=== PATIENT | male | born 1995 | race Caucasian/White ===

== ENCOUNTER → 2016-10-26 | Outpatient (CLI) | payer OTHER ==
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
== END | disposition home or self-care (01) ==
LOC: SLEEP 14:09
PROVIDERS: ATTEND Internal Medicine
DX: G47.419 Narcolepsy without cataplexy (principal); F90.9 Attention-deficit hyperactivity disorder, unspecified type; F41.9 Anxiety disorder, unspecified; F32.9 Major depressive disorder, single episode, unspecified; M41.9 Scoliosis, unspecified

== ENCOUNTER 2017-07-25 17:42 | Emergency (ER) | payer OTHER ==
[2017-07-25] MEDS ORDERED: ASPIRIN 81 MG PO STA (18:35)
[2017-07-25 19:03] LABS: Basophils % (A) 0 %; Eosinophils # (A) 0.1 k/uL (0-0.7); Eosinophils % (A) 1 %; HCT 44.4 % (39.0-53.0); HGB 14.1 gm/dL (13.0-17.5); Lymphocytes # (A) 1.6 k/uL (1.0-4.8); Lymphocytes % (A) 19 %; MCH 26.6 pg (25.0-35.0); MCHC 31.6 g/dL (31.0-37.0); MCV 83.9 fL (80.0-100.0); Mean Platelet Volume 7.7; Monocytes # (A) 0.5 k/uL (0-1.0); Monocytes % (A) 5 %; Neutrophils # (A) 6.3 k/uL (1.3-7.7); Neutrophils % (A) 74 %; Platelet Count 220 k/uL (150-450); RBC 5.29 m/uL (4.30-5.90); RDW 13.1 % (11.5-15.5); WBC 8.6 k/uL (3.8-10.6)
--- NOTE | 2017-07-25 19:16 | XR ---
EXAMINATION TYPE: XR chest 2V DATE OF EXAM: 07/25/2017 COMPARISON: July 30, 2014 HISTORY: Chest pain TECHNIQUE: Frontal and lateral views of the chest are obtained. FINDINGS: Heart and mediastinum are normal. Lungs are clear. Diaphragm is normal. Bony thorax appear s normal. IMPRESSION: Normal chest. No change.
[2017-07-25 19:20] LABS: ALT 20 U/L (21-72); AST 22 U/L (17-59); Albumin 4.3 g/dL (3.5-5.0); Alkaline Phosphatase 65 U/L (38-126); Anion Gap 13 mmol/L; Blood Urea Nitrogen 17 mg/dL (9-20); Calcium 9.9 mg/dL (8.4-10.2); Carbon Dioxide 29 mmol/L (22-30); Chloride 101 mmol/L (98-107); Glucose 71 mg/dL (74-99); Lipase 52 U/L (23-300); Potassium 4.1 mmol/L (3.5-5.1); Sodium 143 mmol/L (137-145); Total Bilirubin 0.5 mg/dL (0.2-1.3)
--- NOTE | 2017-07-25 19:58 | ED ---
Chest Pain HPI - General Chief Complaint: Chest Pain Stated Complaint: Tightness chest/dizzy Time Seen by Provider: 07/25/17 18:29 Source: patient Mode of arrival: wheelchair Limitations: no limitations - History of Present Illness Initial Comments: Patient complains of chest pain. Pain is sharp. Pain is in the left side of the chest. Nothing makes it better or worse. He took no medications. He has no belly or back pain. He has no nausea or vomiting. He has no exertional dyspnea, chest pain, chest pressure, weakness or trouble walking. He has no lightheadedness or dizziness. He denies syncope or presyncope. - Related Data Home Medications Medication Instructions Recorded Confirmed No Known Home Medications [No 07/25/17 07/25/17 Known Home Medications] Allergies Allergy/AdvReac Type Severity Reaction Status Date / Time Penicillins Allergy Anaphylaxis Verified 07/25/17 18:41 Review of Systems ROS Statement: Those systems with pertinent positive or pertinent negative responses have been documented in the HPI. ROS Other: All systems not noted in ROS Statement are negative. EKG Findings - EKG Comments: EKG Findings:: Twelve-lead EKG shows ventricular rate 50 bpm, normal AR interval and QRS complexes, no ST elevation or depression, interpreted by me as normal sinus rhythm. Past Medical History Past Medical History: No Reported History, Syncope Additional Past Medical History / Comment(s): scoliosis, chronic low back pain, ADHD, anxiety, depression. History of Any Multi-Drug Resistant Organisms: None Reported Past Surgical History: No Surgical Hx Reported Past Psychological History: ADD/ADHD, Anxiety, Panic Disorder Smoking Status: Current every day smoker Past Alcohol Use History: Occasional Past Drug Use History: Marijuana, Opiates, Prescription Drug Abuse - Past Family History Mother Family Medical History: No Reported History (Mother is 38-year-old has no major medical problems.) Father Family Medical History: No Reported History (Father is 42-year-old is in shelter because of a home invasion no major medical problems.) Sister(s) Family Medical History: No Reported History (Patient has one sister 6 half- sisters.) Brother(s) Family Medical History: No Reported History (Patient has 2 brothers and 5 half brothers.) General Exam Limitations: no limitations General appearance: alert, in no apparent distress Head exam: Present: atraumatic, normocephalic, normal inspection Eye exam: Present: normal appearance, PERRL, EOMI. Absent: scleral icterus, conjunctival injection, periorbital swelling ENT exam: Present: normal exam, mucous membranes moist Neck exam: Present: normal inspection. Absent: tenderness, meningismus, lymphadenopathy Respiratory exam: Present: normal lung sounds bilaterally. Absent: respiratory distress, wheezes, rales, rhonchi, stridor Cardiovascular Exam: Present: regular rate, normal rhythm, normal heart sounds. Absent: systolic murmur, diastolic murmur, rubs, gallop, clicks GI/Abdominal exam: Present: soft, normal bowel sounds. Absent: distended, tenderness, guarding, rebound, rigid Extremities exam: Present: normal inspection, full ROM, normal capillary refill. Absent: tenderness, pedal edema, joint swelling, calf tenderness Back exam: Present: normal inspection Neurological exam: Present: alert, oriented X3, CN II-XII intact Psychiatric exam: Present: normal affect, normal mood Skin exam: Present: warm, dry, intact, normal color. Absent: rash Course Vital Signs 07/25/17 07/25/17 17:54 19:14 Temperature 98.2 F Pulse Rate 74 61 Respiratory 18 18 Rate Blood Pressure 137/62 111/61 O2 Sat by Pulse 97 98 Oximetry Chest Pain MDM - [facility] Patient complains of chest pain. X-ray of the chest is negative. Labs are all normal. EKG is unremarkable. Patient could have costochondritis or pleurisy. There is no evidence of an acute emergency condition. Patient has 0 PERC criteria. At this time he is stable for discharge and outpatient follow-up. Disposition Clinical Impression: Chest pain Disposition: HOME SELF-CARE Condition: Good Instructions: Chest Pain (ED) Referrals: Amado Mirza MD [Primary Care Provider] - 1-2 days Time of Disposition: 19:58
[2017-07-25 20:29] VITALS: BP 111/64; PULSE 48; RESP 14; TEMP 97.5
== END 2017-07-25 20:29 | disposition home or self-care (01) ==
LOC: EC 17:42
DX: R07.9 Chest pain, unspecified (principal); F17.200 Nicotine dependence, unspecified, uncomplicated; Z88.0 Allergy status to penicillin
CPT/HCPCS: 36415; 71046; 80053; 83690; 83735; 83880; 84484; 85025; 93005; 99285

== ENCOUNTER → 2017-09-18 | Outpatient (CLI) | payer OTHER ==
[2017-09-18 20:42] LABS: HIV AB P24 Non-Reactive (Non-Reactive); HIV P24 AG Non-Reactive (Non-Reactive)
[2017-09-19 15:19] LABS: C. trachomatis,PCR Negative (Neg,Equiv); Chlamydia trachomatis Source Urine; N. gonorrhoeae,PCR Negative (Neg,Equiv); Neisseria Source Urine
== END | disposition home or self-care (01) ==
LOC: LABWHC1 14:39
PROVIDERS: ATTEND Internal Medicine
DX: Z20.2 Contact with and (suspected) exposure to infections with a predominantly sexual mode of transmission (principal)
CPT/HCPCS: 36415; 86780; 87390; 87491; 87591; 87661

== ENCOUNTER → 2017-09-27 | Outpatient (CLI) | payer OTHER ==
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
== END | disposition home or self-care (01) ==
LOC: SLEEP 10:18
PROVIDERS: ATTEND Internal Medicine
DX: G47.10 Hypersomnia, unspecified (principal); F41.9 Anxiety disorder, unspecified; F32.9 Major depressive disorder, single episode, unspecified; Z87.828 Personal history of other (healed) physical injury and trauma; Z79.899 Other long term (current) drug therapy; Z86.59 Personal history of other mental and behavioral disorders; Z87.820 Personal history of traumatic brain injury; Z87.39 Personal history of other diseases of the musculoskeletal system and connective tissue; Z86.19 Personal history of other infectious and parasitic diseases; Z87.09 Personal history of other diseases of the respiratory system

== ENCOUNTER 2017-11-23 18:00 | Emergency (ER) | payer OTHER ==
[2017-11-23 18:13] VITALS: RESP 18
[2017-11-23] MEDS ORDERED: KETOROLAC 30 MG/ML 1 ML VIAL IVP STA (19:11)
[2017-11-23] MEDS ORDERED: SODIUM CHLORIDE 0.9% 1,000 ML IV ONE (19:11)
--- NOTE | 2017-11-23 19:14 | ED ---
Chest Pain HPI - General Chief Complaint: Chest Pain Stated Complaint: LAMBERT Time Seen by Provider: 11/23/17 19:03 Source: patient Mode of arrival: ambulatory Limitations: no limitations - History of Present Illness Initial Comments: [id number] male presenting with 6 month chest pain that is acutely worsened over the last 2 weeks. Patient states chest pain started after he OD' d in the hospital. Denies them doing chest compressions. He states over the last 2 weeks as worsened in every time his heart beats he feels a sharp pain that is left-sided, nonradiating, is not alleviated by anything. Patient states he wants to a physician 10 days prior and a chest x-ray done with the left side of his chest can be visualized. He denies any personal or family history of early MN, DVT PE. He admits to a cough over the last 2 days denies any fevers or chills. He states he had an echo done 2 months prior which showed no acute process. He has also had a Holter monitor which was negative. - Related Data Home Medications Medication Instructions Recorded Confirmed Dextroamphetamine/Amphetamine 20 mg PO BID 11/23/17 11/23/17 [Adderall] diphenhydrAMINE [Benadryl] 25 mg PO HS PRN 11/23/17 11/23/17 Allergies Allergy/AdvReac Type Severity Reaction Status Date / Time Penicillins Allergy Anaphylaxis Verified 11/23/17 19:18 Review of Systems ROS Statement: Those systems with pertinent positive or pertinent negative responses have been documented in the HPI. Review of Systems Constitutional: Denies fever, chills Eyes: Denies change in vision, Denies pain Ears, nose, mouth, throat: Denies headaches, Denies sore throat Cardiovascular: Positive chest pain. Positive palpitations Respiratory: Denies shortness of breath, Denies cough Gastrointestinal: Denies abdominal pain. Denies nausea, vomiting, diarrhea. Genitourinary: Denies hematuria, Denies infections Musculoskeletal: Denies pain, Denies swelling Integumentary: Denies rash Neurological: Denies headache, focal weakness, focal numbness Psychiatric: Denies anxiety, Denies depression Hematologic/Lymphatic: Denies easy bleeding or bruising ROS Other: All systems not noted in ROS Statement are negative. Past Medical History Past Medical History: No Reported History, Syncope Additional Past Medical History / Comment(s): scoliosis, chronic low back pain, ADHD, anxiety, depression. History of Any Multi-Drug Resistant Organisms: None Reported Past Surgical History: No Surgical Hx Reported Past Psychological History: ADD/ADHD, Anxiety, Panic Disorder Smoking Status: Current every day smoker Past Alcohol Use History: Daily Past Drug Use History: Marijuana, Opiates, Prescription Drug Abuse - Past Family History Mother Family Medical History: No Reported History (Mother is 38-year-old has no major medical problems.) Father Family Medical History: No Reported History (Father is 42-year-old is in skilled nursing because of a home invasion no major medical problems.) Sister(s) Family Medical History: No Reported History (Patient has one sister 6 half- sisters.) Brother(s) Family Medical History: No Reported History (Patient has 2 brothers and 5 half brothers.) General Exam - General Exam Comments Initial Comments: General: Awake, alert, No acute Distress HENT: Normocephalic. Atraumatic Eyes: PERRL. EOMI. No scleral icterus. No injected conjunctiva Neck: Full ROM Chest/Lungs: Clear to auscultation bilaterally. No wheezing, rhonchi, or rales Cardiac: Regular rate, rhythm. No murmurs or rubs Abdomen/GI: [Soft, nontender, nondistended. No rebound, guarding, or rigidity. Musculoskeletal: Full ROM Skin: Warm, dry, intact Neurologic: A/Ox3, no weakness, no sensory deficit, no abnormal gait, no coordination deficit Limitations: no limitations Course Vital Signs 11/23/17 11/23/17 11/23/17 18:10 19:13 20:17 Temperature 98.2 F 98 F Pulse Rate 66 60 54 L Respiratory 18 18 18 Rate Blood Pressure 114/71 124/78 124/72 O2 Sat by Pulse 100 100 98 Oximetry 11/23/17 21:31 Temperature 97.7 F Pulse Rate 52 L Respiratory 18 Rate Blood Pressure 119/75 O2 Sat by Pulse 100 Oximetry Chest Pain MDM - MDM 22-year-old male presenting with chest pain. Initial exam the patient is awake alert no acute distress. VSS. The patient has had this chest pain for many months now. He had an extensive workup by cardiology. He is PERC negative. His laboratory workup was unremarkable. His chest x-ray showed no acute process. EKG showed normal sinus rhythm without arrhythmia or ST segment abnormalities. This with the patient following back up with cardiology. He was offered admission but declined. Patient requested a new primary care physician name as well as a new specialty plant supervisor name and he was given both. Heart score 1. No further emergent workup indicated. The patient was given return to ED instructions. They were instructed to follow up with their primary care provider. Stable for discharge at this time. - PERC Rule Heart Rate < 100: (0) No g: (0) No No Prior History pf DVT/PE: (0) No No Recent Trauma or Surgery: (0) No Hemoptysis: (0) No No Exogenous Estrogen: (0) No No Clinical Signs Suggesting DVT: (0) No - SHARYN Score Age > 65: (0) No 3 or more CAD Risk Factors: (0) No Known CAD with more than 50% Stenosis: (0) No Aspirin use within the Past 7 Days: (0) No Elevated Cardiac Markers: (0) No ST Deviation Greater than 0.5mm: (0) No Disposition Clinical Impression: Chest pain, Oral mucosal lesion Disposition: HOME SELF-CARE Condition: Good Instructions: Chest Pain (ED) Additional Instructions: Call your specialty plant supervisor for follow up or Dr. Barahona. Can see any specialty plant supervisor in Dr. Barahona's group. If you would like to see a new primary care doctor call Dr. Perry. Call Dr. Durham for dermatology follow up. Is patient prescribed a controlled substance at d/c from ED?: No Referrals: Azael Barahona MD [STAFF PHYSICIAN] - 1-2 days Cruz Perry MD [STAFF PHYSICIAN] - 1-2 days Mak Durham MD [STAFF PHYSICIAN] - 1-2 days Maurilio Durham MD [STAFF PHYSICIAN] - 1-2 days
[2017-11-23 19:33] LABS: Basophils % (A) 0 %; Eosinophils # (A) 0.1 k/uL (0-0.7); Eosinophils % (A) 1 %; HCT 48.1 % (39.0-53.0); HGB 15.3 gm/dL (13.0-17.5); Lymphocytes # (A) 1.2 k/uL (1.0-4.8); Lymphocytes % (A) 16 %; MCH 26.8 pg (25.0-35.0); MCHC 31.9 g/dL (31.0-37.0); MCV 84.2 fL (80.0-100.0); Mean Platelet Volume 7.6; Monocytes # (A) 0.6 k/uL (0-1.0); Monocytes % (A) 8 %; Neutrophils # (A) 5.4 k/uL (1.3-7.7); Neutrophils % (A) 73 %; Platelet Count 201 k/uL (150-450); RBC 5.71 m/uL (4.30-5.90); WBC 7.4 k/uL (3.8-10.6)
[2017-11-23 19:43] LABS: Anion Gap 9 mmol/L; Blood Urea Nitrogen 17 mg/dL (9-20); Calcium 9.6 mg/dL (8.4-10.2); Carbon Dioxide 28 mmol/L (22-30); Chloride 102 mmol/L (98-107); Glucose 94 mg/dL (74-99); Potassium 3.8 mmol/L (3.5-5.1); Sodium 139 mmol/L (137-145)
--- NOTE | 2017-11-23 19:47 | XR ---
EXAMINATION TYPE: XR chest 2V DATE OF EXAM: 11/23/2017 COMPARISON: 07/17/2017 HISTORY: Chest pain TECHNIQUE: Frontal and lateral views of the chest are obtained. FINDINGS: Heart and mediastinum are normal. Lungs are clear. Diaphragm is normal. Bony thorax is int act. IMPRESSION: Normal chest. No change.
[2017-11-23 21:32] VITALS: BP 119/75; PULSE 52; TEMP 97.7
== END 2017-11-23 21:32 | disposition home or self-care (01) ==
LOC: EC 18:00
DX: R07.9 Chest pain, unspecified (principal); K13.70 Unspecified lesions of oral mucosa; R05 Cough; F90.9 Attention-deficit hyperactivity disorder, unspecified type; F41.0 Panic disorder [episodic paroxysmal anxiety]; F17.200 Nicotine dependence, unspecified, uncomplicated; Z79.899 Other long term (current) drug therapy; Z88.0 Allergy status to penicillin
CPT/HCPCS: 36415; 93005; 83880; 80048; 84484; 85025; 71046; 99285; 96374; 96361; J1885

== ENCOUNTER 2018-01-05 13:52 | Emergency (ER) | payer OTHER ==
[2018-01-05] MEDS ORDERED: SODIUM CHLORIDE 0.9% 1,000 ML IV ONE (14:18)
--- NOTE | 2018-01-05 14:25 | ED ---
Chest Pain HPI - General Chief Complaint: Chest Pain Stated Complaint: Chest pain Time Seen by Provider: 01/05/18 13:59 Source: patient Mode of arrival: ambulatory Limitations: no limitations - History of Present Illness Initial Comments: Patient is a 22-year-old male who presents with a chief complaint of chest pain. Patient states that this is been going on for several months, gradually getting worse. The patient states that he was referred to a metal coater operator and has had a pulmonary functions test, and is scheduled to have a stress test in the future. He characterizes his pain as sharp, and worse with certain movements or laying on his left side. Patient states that he is a current smoker, he drinks daily after work but states that he only has 1 or 2 beers, and that this is not particularly a problem for him. - Related Data Home Medications Medication Instructions Recorded Confirmed Dextroamphetamine/Amphetamine 20 mg PO BID 11/23/17 11/23/17 [Adderall] diphenhydrAMINE [Benadryl] 25 mg PO HS PRN 11/23/17 11/23/17 Allergies Allergy/AdvReac Type Severity Reaction Status Date / Time Penicillins Allergy Anaphylaxis Verified 01/05/18 13:57 Review of Systems ROS Statement: Those systems with pertinent positive or pertinent negative responses have been documented in the HPI. ROS Other: All systems not noted in ROS Statement are negative. Cardiovascular: Reports: chest pain EKG Findings - EKG Results: EKG: interpreted by DESHAUN, sinus rhythm, normal axis, normal QRS, normal ST/T EKG shows: bradycardia Past Medical History Past Medical History: No Reported History, Syncope Additional Past Medical History / Comment(s): scoliosis, chronic low back pain, ADHD, anxiety, depression. History of Any Multi-Drug Resistant Organisms: None Reported Past Surgical History: No Surgical Hx Reported Past Psychological History: ADD/ADHD, Anxiety, Panic Disorder Smoking Status: Current every day smoker Past Alcohol Use History: Daily Past Drug Use History: Marijuana, Opiates, Prescription Drug Abuse - Past Family History Mother Family Medical History: No Reported History (Mother is 38-year-old has no major medical problems.) Father Family Medical History: No Reported History (Father is 42-year-old is in long term because of a home invasion no major medical problems.) Sister(s) Family Medical History: No Reported History (Patient has one sister 6 half- sisters.) Brother(s) Family Medical History: No Reported History (Patient has 2 brothers and 5 half brothers.) General Exam Limitations: no limitations General appearance: alert, in no apparent distress Head exam: Present: atraumatic, normocephalic Eye exam: Present: normal appearance ENT exam: Present: normal exam Neck exam: Present: normal inspection Respiratory exam: Present: normal lung sounds bilaterally. Absent: respiratory distress Cardiovascular Exam: Present: regular rate, normal rhythm, other (Patient has tenderness to palpation of the left side of his chest, patient states that palpation reproduces the pain he is having at home.) GI/Abdominal exam: Present: soft. Absent: distended, tenderness Rectal exam: Present: deferred Extremities exam: Present: normal inspection Back exam: Present: paraspinal tenderness (Left sided) Neurological exam: Present: alert, oriented X3, CN II-XII intact, normal gait Psychiatric exam: Present: normal affect, normal mood Skin exam: Present: warm, dry, intact Course Vital Signs 01/05/18 01/05/18 13:54 14:34 Temperature 97.9 F Pulse Rate 61 45 L Respiratory 16 18 Rate Blood Pressure 121/72 111/64 O2 Sat by Pulse 99 96 Oximetry Chest Pain MDM - MDM Patient presents with a chief complaint of left-sided chest pain for several months. On initial evaluation, vitals are stable, patient is in no acute distress. Patient is perk negativeand PE very unlikely diagnosis. Patient to be evaluated with basic labs including liver profile and lipase, EKG, and troponin. Patient was counseled on the ill effects of smoking and drinking daily. EKG performed at 1423 shows sinus bradycardia with a rate of 47 BPM. patient states he has a history of bradycardia and that this isn't new for him. EKG is otherwise unremarkable. EKG from 11/23/17 reviewed, no acute changes from previous exam. 3:11 PM Patient's records were reviewed, the patient has several visits for the same chest pain. He has been worked up numerous times for the same, he has an unremarkable recent echo, and has had specialty follow-up for this issue. 3:50 PM Laboratory evaluation is unremarkable. At this time, patient stable for discharge. He was informed of his results and instructed to follow-up in 1-2 days, return to the emergency department is symptoms worsen or change. - PERC Rule Heart Rate < 100: (0) No g: (0) No No Prior History pf DVT/PE: (0) No No Recent Trauma or Surgery: (0) No Hemoptysis: (0) No No Exogenous Estrogen: (0) No No Clinical Signs Suggesting DVT: (0) No - SHARYN Score Age > 65: (0) No 3 or more CAD Risk Factors: (0) No Known CAD with more than 50% Stenosis: (0) No Aspirin use within the Past 7 Days: (0) No Elevated Cardiac Markers: (0) No ST Deviation Greater than 0.5mm: (0) No Disposition Clinical Impression: Chest pain Disposition: HOME SELF-CARE Condition: Good Instructions: Chest Pain (ED) Is patient prescribed a controlled substance at d/c from ED?: No Referrals: Amado Mirza MD [Primary Care Provider] - 1-2 days
[2018-01-05 14:35] VITALS: RESP 18
[2018-01-05 14:42] LABS: Basophils % (A) 0 %; Eosinophils # (A) 0.1 k/uL (0-0.7); Eosinophils % (A) 2 %; Lymphocytes # (A) 1.4 k/uL (1.0-4.8); Lymphocytes % (A) 24 %; MCHC 32.7 g/dL (31.0-37.0); MCV 85.4 fL (80.0-100.0); Mean Platelet Volume 7.7; Monocytes # (A) 0.4 k/uL (0-1.0); Monocytes % (A) 7 %; Neutrophils # (A) 3.6 k/uL (1.3-7.7); Neutrophils % (A) 65 %; Platelet Count 215 k/uL (150-450); RBC 5.38 m/uL (4.30-5.90); RDW 13.1 % (11.5-15.5); WBC 5.6 k/uL (3.8-10.6)
[2018-01-05 14:51] LABS: ALT 24 U/L (21-72); AST 25 U/L (17-59); Albumin 4.4 g/dL (3.5-5.0); Alkaline Phosphatase 62 U/L (38-126); Anion Gap 9 mmol/L; Blood Urea Nitrogen 24 mg/dL (9-20); Calcium 10.1 mg/dL (8.4-10.2); Carbon Dioxide 29 mmol/L (22-30); Chloride 103 mmol/L (98-107); Glucose 82 mg/dL (74-99); Lipase 25 U/L (23-300); Magnesium 1.9 mg/dL (1.6-2.3); Sodium 141 mmol/L (137-145); Total Bilirubin 0.9 mg/dL (0.2-1.3); Total Protein 7.4 g/dL (6.3-8.2)
--- NOTE | 2018-01-05 15:03 | XR ---
EXAMINATION TYPE: XR chest 2V DATE OF EXAM: 01/05/2018 COMPARISON: 11/23/2017 INDICATION: Pain TECHNIQUE: Frontal and lateral views of the chest are obtained. FINDINGS: The heart size is normal. The pulmonary vasculature is normal. The lungs are clear. IMPRESSION: 1. No acute pulmonary process.
[2018-01-05] MEDS ORDERED: KETOROLAC 30 MG/ML 1 ML VIAL IM STA (15:51)
[2018-01-05 16:05] VITALS: BP 116/69; PULSE 46; TEMP 98.2
== END 2018-01-05 16:12 | disposition home or self-care (01) ==
LOC: EC 13:52
DX: R07.9 Chest pain, unspecified (principal); R00.1 Bradycardia, unspecified; F90.9 Attention-deficit hyperactivity disorder, unspecified type; F17.200 Nicotine dependence, unspecified, uncomplicated; Z79.899 Other long term (current) drug therapy; Z88.0 Allergy status to penicillin
CPT/HCPCS: 36415; 93005; 80053; 83690; 83735; 84484; 85025; 71046; 99285; 96360; 96372; J1885

== ENCOUNTER → 2019-02-20 | Outpatient (CLI) | payer OTHER ==
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
== END | disposition home or self-care (01) ==
LOC: SLEEP 10:15
PROVIDERS: ATTEND Internal Medicine
DX: G47.9 Sleep disorder, unspecified (principal); Z86.59 Personal history of other mental and behavioral disorders; Z86.69 Personal history of other diseases of the nervous system and sense organs; Z87.39 Personal history of other diseases of the musculoskeletal system and connective tissue; Z86.19 Personal history of other infectious and parasitic diseases; Z87.09 Personal history of other diseases of the respiratory system; Z79.899 Other long term (current) drug therapy

== ENCOUNTER 2019-05-06 09:38 | Emergency (ER) | payer OTHER ==
[2019-05-06 10:15] VITALS: BP 92/59; PULSE 58; TEMP 98.1
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
[2019-05-06 11:33] VITALS: RESP 20
== END 2019-05-06 11:33 | disposition home or self-care (01) ==
LOC: EC 09:38
DX: S09.90XA Unspecified injury of head, initial encounter (principal); F90.9 Attention-deficit hyperactivity disorder, unspecified type; F17.200 Nicotine dependence, unspecified, uncomplicated; Z88.0 Allergy status to penicillin; Z79.899 Other long term (current) drug therapy; W22.01XA Walked into wall, initial encounter; Y93.11 Activity, swimming; Y92.34 Swimming pool (public) as the place of occurrence of the external cause; Y92.59 Other trade areas as the place of occurrence of the external cause
CPT/HCPCS: 70450; 99283

== ENCOUNTER 2019-10-02 14:40 | Emergency (ER) | payer OTHER ==
[2019-10-02 14:58] VITALS: BP 137/85; PULSE 63; RESP 18; TEMP 98.3
== END 2019-10-02 15:30 ==
LOC: EC 14:40
DX: S89.90XA Unspecified injury of unspecified lower leg, initial encounter (principal); Z53.21 Procedure and treatment not carried out due to patient leaving prior to being seen by health care provider
CPT/HCPCS: 99499

== ENCOUNTER → 2020-04-21 | Outpatient (CLI) | payer OTHER ==
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
== END | disposition home or self-care (01) ==
LOC: SLEEP 13:13
PROVIDERS: ATTEND Internal Medicine
DX: G47.10 Hypersomnia, unspecified (principal); Z86.59 Personal history of other mental and behavioral disorders; Z87.820 Personal history of traumatic brain injury; Z87.898 Personal history of other specified conditions

== ENCOUNTER → 2021-08-11 | Outpatient (CLI) | payer OTHER ==
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
== END ==
LOC: SLEEP 16:14
PROVIDERS: ATTEND Internal Medicine
DX: R40.0 Somnolence (principal); F32.A Depression, unspecified; F41.9 Anxiety disorder, unspecified; F90.9 Attention-deficit hyperactivity disorder, unspecified type; Z86.59 Personal history of other mental and behavioral disorders; Z86.69 Personal history of other diseases of the nervous system and sense organs; Z87.828 Personal history of other (healed) physical injury and trauma; Z87.39 Personal history of other diseases of the musculoskeletal system and connective tissue; Z86.19 Personal history of other infectious and parasitic diseases; Z88.0 Allergy status to penicillin

== ENCOUNTER → 2022-08-24 | Outpatient (CLI) | payer OTHER ==
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
== END ==
LOC: SLEEP 15:37
PROVIDERS: ATTEND Internal Medicine
DX: G47.10 Hypersomnia, unspecified (principal); F32.A Depression, unspecified; F90.9 Attention-deficit hyperactivity disorder, unspecified type; F41.9 Anxiety disorder, unspecified; Z98.890 Other specified postprocedural states; Z99.89 Dependence on other enabling machines and devices; M54.9 Dorsalgia, unspecified; Z88.0 Allergy status to penicillin; F17.200 Nicotine dependence, unspecified, uncomplicated
CPT/HCPCS: 99212

== ENCOUNTER → 2023-11-14 | Outpatient (CLI) | payer OTHER ==
[2023-11-14 15:06] VITALS: BP 105/64; PULSE 54; RESP 16; TEMP 98.2
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
== END ==
LOC: 3 N SLEEP 14:35
PROVIDERS: ATTEND Internal Medicine
DX: G47.10 Hypersomnia, unspecified (principal); F17.200 Nicotine dependence, unspecified, uncomplicated; Z86.59 Personal history of other mental and behavioral disorders; Z87.39 Personal history of other diseases of the musculoskeletal system and connective tissue; Z87.828 Personal history of other (healed) physical injury and trauma; Z86.19 Personal history of other infectious and parasitic diseases; Z87.09 Personal history of other diseases of the respiratory system; Z88.0 Allergy status to penicillin
CPT/HCPCS: 99212

== ENCOUNTER → 2024-01-03 | Outpatient (CLI) | payer OTHER ==
--- NOTE | 2024-01-03 14:12 | CT ---
EXAMINATION TYPE: CT iac wo con CT DLP: 237 mGycm, Automated exposure control for dose reduction was used. DATE OF EXAM: 01/03/2024 1:26 PM INDICATION: Patient age: Male; 28 years old; Reason for study: H83.3X1, H83.8X2; PHH. COMPARISON: none. TECHNIQUE: Multiple thin axial images were obtained through the temporal bones and internal auditory canals. Additional coronal reformatted images were obtained. No IV contrast was utilized. CT Contrast: mL of , none. FINDINGS: Right Temporal Bone: External Ear: The external auditory canal is unremarkable, The tympanic membrane is present and unrem arkable. Middle Ear: The ossicles demonstrate a normal appearance. Prussak's space is clear and the scutum i s intact. There is no evidence of osseous erosion and the tegmen tympani is intact. Inner Ear: Cochlea, vestibule and semi circular canals are unremarkable. No evidence of carotid teri l dehiscence. Two and a half turns of the cochlea are identified. The vestibular aqueduct is not enl arged. Mastoid Air Cells: The mastoid air cells are clear. The tegmen mastoideum is intact. The aditus ad an trum is clear. Internal Auditory Canal: The internal auditory canal is unremarkable. Left Temporal Bone: External Ear: The external auditory canal is unremarkable, The tympanic membrane is present and unrem arkable. Middle Ear: The ossicles demonstrate a normal appearance. Prussak's space is clear and the scutum i s intact. There is no evidence of osseous erosion and the tegmen tympani is intact. Inner Ear: Cochlea, vestibule and semi circular canals are unremarkable. No evidence of carotid teri l dehiscence. Two and a half turns of the cochlea are identified. The vestibular aqueduct is not enl arged. Mastoid Air Cells: The mastoid air cells are clear. The tegmen mastoideum is intact. The aditus ad an trum is clear. Internal Auditory Canal: The internal auditory canal is unremarkable. Other: Mild paranasal sinus mucosal thickening. IMPRESSION: Normal internal auditory canal study.
== END | disposition home or self-care (01) ==
LOC: RADCTMAIN 12:59
PROVIDERS: ATTEND Otolaryngology Otology & Neurotology
DX: H83.8X1 Other specified diseases of right inner ear (principal); H83.8X2 Other specified diseases of left inner ear
CPT/HCPCS: 70480

== ENCOUNTER 2024-01-26 00:07 | Emergency (ER) | payer OTHER ==
[2024-01-26 00:12] VITALS: BP 107/61; PULSE 52; RESP 18; TEMP 97.5
--- NOTE | 2024-01-26 01:11 | ED ---
Lower Extremity Injury HPI - General Chief Complaint: Extremity Injury, Lower Stated Complaint: Left Foot Injury Time Seen by Provider: 01/26/24 00:25 Source: patient, RN notes reviewed Mode of arrival: wheelchair Limitations: no limitations - History of Present Illness Initial Comments: This is a 28-year-old male presents emergency department chief complaint of left foot pain. Patient states that he was out working [employer] and stubbed his left foot on a concrete stair. Patient denies falling or hitting his head at time this injury. Patient states that his pain is most severe over the great toe. He denies rolling his ankle at this time. No other acute complaints at this time. - Related Data Home Medications Medication Instructions Recorded Confirmed Dextroamphetamine/Amphetamine 20 mg PO BID 11/23/17 11/14/23 [Adderall] diphenhydrAMINE [Benadryl] 25 mg PO HS PRN 11/23/17 11/23/17 Previous Rx's Medication Instructions Recorded Ibuprofen [Motrin] 600 mg PO Q6HR PRN #20 tab 01/05/18 Allergies Allergy/AdvReac Type Severity Reaction Status Date / Time Penicillins Allergy Anaphylaxis Verified 10/02/19 14:58 Review of Systems ROS Statement: Those systems with pertinent positive or pertinent negative responses have been documented in the HPI. ROS Other: All systems not noted in ROS Statement are negative. Past Medical History Past Medical History: COPD, Syncope Additional Past Medical History / Comment(s): scoliosis, chronic low back pain, ADHD, anxiety, depression. History of Any Multi-Drug Resistant Organisms: None Reported Past Surgical History: No Surgical Hx Reported Past Psychological History: ADD/ADHD, Anxiety, Panic Disorder Smoking Status: Never smoker Past Alcohol Use History: None Reported, Daily Past Drug Use History: Marijuana, Opiates, Prescription Drug Abuse - Past Family History Mother Family Medical History: No Reported History (Mother is 38-year-old has no major medical problems.) Father Family Medical History: No Reported History (Father is 42-year-old is in longterm because of a home invasion no major medical problems.) Sister(s) Family Medical History: No Reported History (Patient has one sister 6 half- sisters.) Brother(s) Family Medical History: No Reported History (Patient has 2 brothers and 5 half brothers.) General Exam Limitations: no limitations General appearance: alert, in no apparent distress Eye exam: Present: normal appearance, PERRL, EOMI. Absent: scleral icterus, conjunctival injection, periorbital swelling ENT exam: Present: normal exam, mucous membranes moist Neck exam: Present: normal inspection. Absent: tenderness, meningismus, lymphadenopathy Respiratory exam: Present: normal lung sounds bilaterally. Absent: respiratory distress, wheezes, rales, rhonchi, stridor Cardiovascular Exam: Present: regular rate, normal rhythm, normal heart sounds. Absent: systolic murmur, diastolic murmur, rubs, gallop, clicks GI/Abdominal exam: Present: soft, normal bowel sounds. Absent: distended, tenderness, guarding, rebound, rigid Left Foot/Toe exam: Present: normal inspection, full ROM, tenderness (over great toe). Absent: swelling, abrasion, laceration, ecchymosis, deformity Neurovascular tendon exam: Present: no vascular compromise. Absent: pulse deficit Gait: observed and normal Back exam: Present: normal inspection Skin exam: Present: warm, dry, intact, normal color. Absent: rash Course Vital Signs 01/26/24 00:09 Temperature 97.5 F L Pulse Rate 52 L Respiratory 18 Rate Blood Pressure 107/61 O2 Sat by Pulse 100 Oximetry Medical Decision Making - Medical Decision Making Was pt. sent in by a medical professional or institution (REZA Bose, SAFETY PROFESSIONAL, urgent care, hospital, or [facility]...) When possible be specific @ -No Did you speak to anyone other than the patient for history (EMS, parent, family, police, friend...)? What history was obtained from this source @ -No Did you review nursing and triage notes (agree or disagree)? Why? @ -I reviewed and agree with nursing and triage notes Were old charts reviewed (outside hosp., previous admission, EMS record, old EKG, old radiological studies, urgent care reports/EKG's, [facility] records)? Report findings @ -No old charts were reviewed Differential Diagnosis (chest pain, altered mental status, abdominal pain women, abdominal pain men, vaginal bleeding, weakness, fever, dyspnea, syncope, hea dache, dizziness, GI bleed, back pain, seizure, CVA, palpatations, mental health, musculoskeletal)? @ -Differential Musculoskeletal Muscular strain, contusion, ligament sprain, fracture, arthritis, septic arthritis, bursitis, cellulitis, muscle spasm, nerve compression, DVT, arterial occlusion, herpes zoster, electrolyte abnormality, tumor.... This is not meant to be in all inclusive list EKG interpreted by me (3pts min.). @ -None X-rays interpreted by me (1pt min.). @ -Through the left foot negative for acute osseous abnormality CT interpreted by me (1pt min.). @ -None done U/S interpreted by me (1pt. min.). @ -None done What testing was considered but not performed or refused? (CT, X-rays, U/S, labs)? Why? @ -None What meds were considered but not given or refused? Why? @ -None Did you discuss the management of the patient with other professionals (professionals i.e. , PA, SAFETY PROFESSIONAL, lab, RT, psych nurse, medical social consultant, glove sewer, teacher, consular officer, social work case manager)? Give summary @ -No Was smoking cessation discussed for >3mins.? @ -No Was critical care preformed (if so, how long)? @ -No Were there social determinants of health that impacted care today? How? (Homelessness, low income, unemployed, alcoholism, drug addiction, transportation, low edu. Level, literacy, decrease access to med. care, retirement, rehab)? @ -No Was there de-escalation of care discussed even if they declined (Discuss DNR or withdrawal of care, Hospice)? DNR status @ -No What co-morbidities impacted this encounter? (DM, HTN, Smoking, COPD, CAD, Cancer, CVA, ARF, Chemo, Hep., AIDS, mental health diagnosis, sleep apnea, morbid obesity)? @ -None Was patient admitted / discharged? Hospital course, mention meds given and route, prescriptions, significant lab abnormalities, going to OR and other pertinent info. @ -Discharged. 28-year-old male with left foot pain. Patient is able to ambulate with no deficits. There are no neurovascular deficits. No obvious soft tissue deformities. X-ray negative for acute process. Patient symptoms are likely secondary to a foot sprain. Recommend that he continue to rest, ice, elevate and use Tylenol Motrin at home as needed. Discussed with Dr. Hubbard Undiagnosed new problem with uncertain prognosis? @ -No Drug Therapy requiring intensive monitoring for toxicity (Heparin, Nitro, Insulin, Cardizem)? @ -No Were any procedures done? @ -No Diagnosis/symptom? @ -Sprain Acute, or Chronic, or Acute on Chronic? @ -Acute Uncomplicated (without systemic symptoms) or Complicated (systemic symptoms)? @ -uncomplicated Side effects of treatment? @ -No Exacerbation, Progression, or Severe Exacerbation? @ -No Poses a threat to life or bodily function? How? (Chest pain, [place], [place], pneumonia, PE, COPD, DKA, ARF, appy, cholecystitis, CVA, Diverticulitis, Homicidal, Suici annette, threat to staff... and all critical care pts) @ -No Disposition Clinical Impression: Sprain of toe Disposition: HOME SELF-CARE Condition: Good Instructions (If sedation given, give patient instructions): Foot Sprain (ED) Additional Instructions: Return to the emergency department for any new or worsening symptoms. Recommend they continue to rest, ice, elevate affected foot. Use Tylenol and Motrin at home for symptomatic relief. Is patient prescribed a controlled substance at d/c from ED?: No Referrals: None,Stated [Primary Care Provider] - 1-2 days Time of Disposition: 01:10
--- NOTE | 2024-01-26 02:02 | XR ---
EXAM: XR Left Foot Complete, 3 or More Views CLINICAL HISTORY: ITS.REASON XR Reason: tripped TECHNIQUE: Frontal, lateral and oblique views of the left foot. COMPARISON: No relevant prior studies available. FINDINGS: Bones/joints: Unremarkable. No acute fracture. No dislocation. Soft tissues: Unremarkable. No radiopaque foreign body. IMPRESSION: Normal left foot x-rays.
== END 2024-01-26 01:18 | disposition home or self-care (01) ==
LOC: EC 00:07
CPT/HCPCS: 99283

== ENCOUNTER → 2024-05-02 | Outpatient (CLI) | payer OTHER ==
--- NOTE | 2024-05-02 19:32 | MR ---
EXAMINATION TYPE: MR iac wo con DATE OF EXAM: 05/02/2024 COMPARISON: CT IAC January 03, 2024 HISTORY: Left side hearing loss, head pressure and pain, TECHNIQUE: Multiplanar, multisequence imaging of the brain and brainstem is performed without IV cont rast. Acoustic nerve disorder protocol. FINDINGS: Diffusion weighted images demonstrate no evidence of a recent infarct or other diffusion abnormality. There is no extraaxial fluid collection or significant white matter signal abnormality. The ventricu lar system and cisternal spaces are normal in size and appearance. The brain volume is age appropria te. Midline structures demonstrate normal morphology. The craniocervical junction appears within normal limits. Normal vascular flow voids are present. The visualized sinuses are clear and the globes are i ntact. No suspicious opacification of the mastoid air cells bilaterally. Vestibulocochlear complexes are sym metric and within normal limits on noncontrast MRI. IMPRESSION: No suspicious findings seen to account for patient's symptoms given limitations of noncon trast MRI. [facility], , 05/02/2024 7:30 PM
== END | disposition home or self-care (01) ==
LOC: RADMRIMAIN 03-31 16:37
PROVIDERS: ATTEND Otolaryngology
DX: Z53.9 Procedure and treatment not carried out, unspecified reason (principal)
CPT/HCPCS: 70551

== ENCOUNTER 2024-05-08 14:10 | Emergency (ER) | payer OTHER ==
--- NOTE | 2024-05-08 14:49 | ED ---
General Adult HPI - General Chief complaint: Extremity Injury, Lower Stated complaint: Stepped on a nail, right foot Time Seen by Provider: 05/08/24 14:34 Source: patient, RN notes reviewed Mode of arrival: ambulatory Limitations: no limitations - History of Present Illness Initial comments: This is a 29-year-old male with no significant medical history is presenting to the emergency department after a injury to his right foot. Patient states that he was working when he was walking outside and stepped on a nail that was on the ground that punctured through his shoe and into his foot. He believes his last tetanus vaccination was in 2018. Denies paresthesias. No other acute complaints at this time. - Related Data Home Medications Medication Instructions Recorded Confirmed Dextroamphetamine/Amphetamine 20 mg PO BID 11/23/17 11/14/23 [Adderall] diphenhydrAMINE [Benadryl] 25 mg PO HS PRN 11/23/17 11/23/17 Previous Rx's Medication Instructions Recorded Ibuprofen [Motrin] 600 mg PO Q6HR PRN #20 tab 01/05/18 Ciprofloxacin HCl [Cipro] 500 mg PO Q12HR #20 tablet 05/08/24 Allergies Allergy/AdvReac Type Severity Reaction Status Date / Time Penicillins Allergy Anaphylaxis Verified 05/08/24 14:14 Review of Systems ROS Statement: Those systems with pertinent positive or pertinent negative responses have been documented in the HPI. ROS Other: All systems not noted in ROS Statement are negative. Past Medical History Past Medical History: COPD, Syncope Additional Past Medical History / Comment(s): scoliosis, chronic low back pain, ADHD, anxiety, depression. History of Any Multi-Drug Resistant Organisms: None Reported Past Surgical History: No Surgical Hx Reported Past Psychological History: ADD/ADHD, Anxiety, Panic Disorder Smoking Status: Never smoker Past Alcohol Use History: None Reported, Daily Past Drug Use History: Marijuana, Opiates, Prescription Drug Abuse - Past Family History Mother Family Medical History: No Reported History (Mother is 38-year-old has no major medical problems.) Father Family Medical History: No Reported History (Father is 42-year-old is in [facility] because of a home invasion no major medical problems.) Sister(s) Family Medical History: No Reported History (Patient has one sister 6 half- sisters.) Brother(s) Family Medical History: No Reported History (Patient has 2 brothers and 5 half brothers.) General Exam Limitations: no limitations General appearance: alert, in no apparent distress Neck exam: Present: normal inspection. Absent: tenderness, meningismus, ly mphadenopathy Respiratory exam: Present: normal lung sounds bilaterally. Absent: respiratory distress, wheezes, rales, rhonchi, stridor Cardiovascular Exam: Present: regular rate, normal rhythm, normal heart sounds. Absent: systolic murmur, diastolic murmur, rubs, gallop, clicks GI/Abdominal exam: Present: soft, normal bowel sounds. Absent: distended, tenderness, guarding, rebound, rigid Right Foot/Toe exam: Present: tenderness (lateral dorsum foot), swelling Neurovascular tendon exam: Present: no vascular compromise. Absent: pulse deficit, abnormal cap refill, motor deficit, sensory deficit Gait: observed and normal Back exam: Present: normal inspection Course Vital Signs 05/08/24 05/08/24 14:14 15:58 Temperature 97.8 F 97.9 F Pulse Rate 54 L 86 Respiratory 18 20 Rate Blood Pressure 108/73 110/76 O2 Sat by Pulse 99 100 Oximetry Medical Decision Making - Medical Decision Making Was pt. sent in by a medical professional or institution (, PA, [employer], urgent care, hospital, or custodial...) When possible be specific @ -No Did you speak to anyone other than the patient for history (EMS, parent, family, police, friend...)? What history was obtained from this source @ -No Did you review nursing and triage notes (agree or disagree)? Why? @ -I reviewed and agree with nursing and triage notes Were old charts reviewed (outside hosp., previous admission, EMS record, old EKG, old radiological studies, urgent care reports/EKG's, custodial records)? Report findings @ -No old charts were reviewed Differential Diagnosis (chest pain, altered mental status, abdominal pain women, abdominal pain men, vaginal bleeding, weakness, fever, dyspnea, syncope, headache, dizziness, GI bleed, back pain, seizure, CVA, palpatations, mental health, musculoskeletal)? @ -Laceration, puncture wound, skin abrasion, this is not all inclusive EKG interpreted by me (3pts min.). @ -None X-rays interpreted by me (1pt min.). @ -None done CT interpreted by me (1pt min.). @ -None done U/S interpreted by me (1pt. min.). @ -None done What testing was considered but not performed or refused? (CT, X-rays, U/S, labs)? Why? @ -None What meds were considered but not given or refused? Why? @ -None Did you discuss the management of the patient with other professionals (professionals i.e. Dr., PA, [employer], lab, RT, psych nurse, web content & social media manager, lsw, teacher, geological technical officer, patient case coordinator)? Give summary @ -No Was smoking cessation discussed for >3mins.? @ -No Was critical care preformed (if so, how long)? @ -No Were there social determinants of health that impacted care today? How? (Homelessness, low income, unemployed, alcoholism, drug addiction, transportation, low edu. Level, literacy, decrease access to med. care, halfway, rehab)? @ -No Was there de-escalation of care discussed even if they declined (Discuss DNR or withdrawal of care, Hospice)? DNR status @ -No What co-morbidities impacted this encounter? (DM, HTN, Smoking, COPD, CAD, Cancer, CVA, ARF, Chemo, Hep., AIDS, mental health diagnosis, sleep apnea, morbid obesity)? @ -None Was patient admitted / discharged? Hospital course, mention meds given and route, prescriptions, significant lab abnormalities, going to OR and other pertinent info. @ -Discharge. 29-year-old male presenting with a puncture wound to the right dorsum foot. Noted to have a mild puncture wound to the right foot. Patient was offered tetanus vaccination however was declined. He is provided with outpatient prescription for Cipro. Foot was cleansed with Betadine solution. Return precautions discussed with the patient. Discussed with Dr. Álvarez Undiagnosed new problem with uncertain prognosis? @ -No Drug Therapy requiring intensive monitoring for toxicity (Heparin, Nitro, Insulin, Cardizem)? @ -No Were any procedures done? @ -No Diagnosis/symptom? @ -puncture wound Acute, or Chronic, or Acute on Chronic? @ -acute Uncomplicated (without systemic symptoms) or Complicated (systemic symptoms)? @ -uncomplicated Side effects of treatment? @ -No Exacerbation, Progression, or Severe Exacerbation? @ -No Poses a threat to life or bodily function? How? (Chest pain, [place], [place], pneumonia, PE, COPD, DKA, ARF, appy, cholecystitis, CVA, Diverticulitis, Homicidal, Suicidal, threat to staff... and all critical care pts) @ -No Disposition Clinical Impression: Puncture wound Disposition: HOME SELF-CARE Condition: Good Instructions (If sedation given, give patient instructions): Puncture Wound (ED) Additional Instructions: Please return to the Emergency Department if symptoms worsen or any other concerns. Complete full course antibiotics as prescribed. Prescriptions: Ciprofloxacin HCl [Cipro] 500 mg PO Q12HR #20 tablet Is patient prescribed a controlled substance at d/c from ED?: No Referrals: None,Stated [Primary Care Provider] - 1-2 days Time of Disposition: 15:06
[2024-05-08 16:00] VITALS: RESP 20; TEMP 97.9
[2024-05-08 16:05] VITALS: BP 110/76; PULSE 86
== END 2024-05-08 16:00 | disposition home or self-care (01) ==
LOC: EC 14:10
DX: S91.331A Puncture wound without foreign body, right foot, initial encounter (principal); Z88.0 Allergy status to penicillin; W22.8XXA Striking against or struck by other objects, initial encounter
CPT/HCPCS: 99282